=== PATIENT | male | born 1970 ===

== ENCOUNTER 2025-05-27 15:40 | Outpatient (NON) | payer OTHER, SELFPAY ==
--- OUTSIDE RECORDS SUMMARY | 2025-05-27 19:54 | XMS_ITS | Clinical Summary ---
Author Organization [facility] Address [address] [place] [address] Care Team Providers Care Supervisor Slitting And Shipping Name Role Phone Gustavo Dominguez MD, Lb Primary Care Provider [phone] Encounters Date Type Department Care Team Description 03/06/2025 12:30 PM CDT - 03/06/2025 11:59 PM CDT Hospital Encounter [facility] [address] [facility] [place] [address] Lb Chen MD Discharge Disposition: Home or Self Care (Routine Discharge) 03/06/2025 Travel from Last 3 Months Social History Tobacco Use Types Packs/Day Years Used Date Smoking Tobacco: Never Assessed Sex and Gender Information Value Date Recorded Sex Assigned at Male 03/06/2025 12:25 PM CDT Legal Sex Male 10:14 AM CDT Gender Identity Not on file Sexual Orientation Not on file Plan of Treatment Health Maintenance Due Date Last Done Comments Colorectal Cancer Screening Colonoscopy (10 Years) 1968 Annual Physical 12/26/1971 Hepatitis C 1986 DTaP, Tdap and Td Vaccines ( 1 - Tdap) 12/26/1987 Hepatitis B Vaccines (1 of 3 - 19+ 3-dose series) 12/26/1987 Pneumococcal Vaccine: 50+ Ye ars (1 of 1 - PCV) 2018 Zoster Vaccines (1 of 2) 2018 COVID-19 Vaccine ( - 2023-2 5 season) 2025 Influenza Adult (#1) 2025 Hepatitis A Vaccines Aged Out No long er eligible based on patient's age to complete this topic Meningococcal B Vaccine Aged Out No l onger eligible based on patient's age to complete this topic Meningococcal Vaccine Aged Out No [place] eligible based on patient's age to complete this topic RSV Immunizations Under 20 Months Aged Out No longer eligible based on patient's age to complete this topic Procedures Procedure Name Priority Date/Time Associated Diagnosis Comments CT SINUS WO CON Routine 03/06/2025 1:04 PM CDT Opacified maxillary sinus Hypoplastic maxillary sinus from Last 3 Months Results * CT SINUS WO CON (03/06/2025 1:04 PM CDT) Anatomical Region Laterality Modality Facial Computed Tomogra phy 03/09/2025 10:0 9 AM CDT Impressions 03/09/2025 10:22 AM CDT IMPRESSION: 1. Complete opacification of left maxillary sinus with erosion of the superior and medial wall of the left maxillary sinus. Most likely from inflammation. Other possibility is prior surgery.. 2. Left ostiomeatal complex is occluded. Right side is patent. 3. Moderate mucosal thickening of the ethmoid air cells, sphenoid sinuses, and left frontal sinus. 4. Mild mucosal thickening of the right maxillary sinus. 5. Mildly displaced old left nasal bone fracture. Ordered By: LB CHEN V Interpreted By: Hill Jenkins, 03/09/2025 10:09 AM Narrative 03/09/2025 10:22 AM CDT [address] [place] [address] EXAMINATION: CT sinuses without contrast EXAM DATE/TIME: 03/06/2025 12:47 PM REASON FOR EXAM: opacified maxillary sinus; hypoplastic maxillary sinus Chronic sinus congestion since 2019 COMPARISON: None available TECHNIQUE: Axial CT images of the paranasal sinuses are obtained without the use of IV contrast agent. Subsequent coronal and sagittal reformatted sequences are created for evaluation. A dose lowering technique was used for this procedure, which may include, but is not limited to, dose reduction technique, automated exposure control, iterative reconstruction, ALARA (As Low As Reasonably Achievable), or Image Gently techniques. FINDINGS: Soft tissue windows demonstrate no significant soft tissue swelling, mass. Limited evaluation of intracranial contents is unremarkable. Orbital contents are unremarkable. No acute facial bone fracture or dislocation. Appearance of old mildly displaced fracture of the left nasal bone Nasal septum, hard palate, orbital rims, pterygoid plates, and zygomatic arches are all intact. There are normal bony lamina between the bilateral ICAs and sphenoid sinus. There is complete opacification of the left maxillary sinus with appearance of erosion of the superior and medial wall of the left maxillary sinus. Most likely from inflammation. Other possibility is prior surgery. Mild mucosal thickening of the right maxillary sinus. Right ostiomeatal complex is patent. Left ostiomeatal complex is occluded. Moderate mucosal thickening of the ethmoid air cells and sphenoid sinuses. Near complete opacification of left frontal sinus. Minimal mucosal thickening in the right frontal sinus. Mastoid air cells are well aerated. Procedure Note Travis Jenkins MD - 03/09/[address] [place] [address] EXAMINATION: CT sinuses without contrast EXAM DATE/TIME: 03/06/2025 12:47 PM REASON FOR EXAM: opacified maxillary sinus; hypoplastic maxillary sinus Chronic sinus congestion since 2019 COMPARISON: None available TECHNIQUE: Axial CT images of the paranasal sinuses are obtained withoutthe use of IV contrast agent. Subsequent coronal and sagittal reformattedsequences are created for evaluation. A dose lowering technique was used for this procedure, which may include,but is not limited to, dose reduction technique, automated exposurecontrol, iterative reconstruction, ALARA (As Low As ReasonablyAchievable), or Image Gently techniques. FINDINGS: Soft tissue windows demonstrate no significant soft tissueswelling, mass. Limited evaluation of intracranial contents is unremarkable. Orbitalcontents are unremarkable. No acute facial bone fracture or dislocation.Appearance of old mildly displaced fracture of the left nasal bone Nasalseptum, hard palate, orbital rims, pterygoid plates, and zygomatic archesare all intact. There are normal bony lamina between the bilateral ICAsand sphenoid sinus. There is complete opacification of the left maxillary sinus withappearance of erosion of the superior and medial wall of the leftmaxillary sinus. Most likely from inflammation. Other possibility is priorsurgery. Mild mucosal thickening of the right maxillary sinus. Right ostiomeatalcomplex is patent. Left ostiomeatal complex is occluded. Moderate mucosal thickening of the ethmoid air cells and sphenoidsinuses. Near complete opacification of left frontal sinus. Minimal mucosalthickening in the right frontal sinus. Mastoid air cells are well aerated. IMPRESSION: 1. Complete opacification of left maxillary sinus with erosion of thesuperior and medial wall of the left maxillary sinus. Most likely frominflammation. Other possibility is prior surgery.. 2. Left ostiomeatal complex is occluded. Right side is patent. 3. Moderate mucosal thickening of the ethmoid air cells, sphenoidsinuses, and left frontal sinus. 4. Mild mucosal thickening of the right maxillary sinus. 5. Mildly displaced old left nasal bone fracture. Ordered By: LB CHEN V Interpreted By: Hill Jenkins, 03/09/2025 10:09 AM Lb Domniguez MD CT Final Result from Last 3 Months Insurance [employer] Care Teams Supervisor Slitting And Shipping Relationship Specialty Start Date End Date Lb Chen MD [facility] [address] [place] [address] PCP - General INTERNAL MEDICINE 03/06/25
== END 2025-05-27 15:41 | disposition home or self-care (01) ==
LOC: ANHGOSHLAB 15:40
PROVIDERS: Visit Provider Otolaryngology
DX: J32.9 Chronic sinusitis, unspecified (principal)
CPT/HCPCS: 87070; 87075; 87147; 87186; 87205